=== PATIENT | male | born 1965 | race Caucasian/White ===

== ENCOUNTER 2017-10-31 10:00 | Observation (INO) ==
[2017-10-31] MEDS ORDERED: CeFAZolin Syr 2,000MG/20 ML 2,000 MG/20 ML SYRINGE IVPB ONE (10:21)
[2017-10-31] MEDS ORDERED: Albuterol 2.5 MG/3 ML NEBULIZER IH ONE ×2 (10:28→13:08)
[2017-10-31] MEDS ORDERED: Albuterol 2.5 MG/3 ML NEBULIZER ONE (10:29)
[2017-10-31] MEDS: Ringers Solution, Lactated 1,000 ML IVC SCH ×2 (10:40→15:00)
[2017-10-31] MEDS ORDERED: Gabapentin 300 MG CAPSULE PO ONE (10:53)
[2017-10-31] MEDS ORDERED: Acetaminophen IV 1,000 MG/100 ML INFUS..BTL IVPB ONE (10:53)
--- NOTE | 2017-10-31 10:56 | Anesthesia Evaluation PreOp ---
Date of Encounter: 10/31/17 Time of Encounter: 10:50 - Past History Planned Operation: multi level laminectomy Cardiac History: Denies any Significant Hx Pulmonary History: Smoker ANALYST BUSINESS ANALYSIS History: Denies Any Significant HX Other Medical History: Denies Any Significant HX Anesthesia History: No Prior Anesthetic Complications, Past Anesthesia (Has never had a GA before.) Alcohol Use: heavy Drug use: none Medications and Allergies HYDROcodone/Acet 10/325 mg [[place] 10-325 mg] 0.5 - 1 mg PO Q4-6H PRN 10/31/17 [ History] 3 Allergy/AdvReac Type Severity Reaction Status Date / Time No Known Allergies Allergy Verified 10/31/17 10:39 - Meds/Allergy Pre-op Review Medications Reviewed: Yes Allergies Reviewed: Yes Beta Blockers on Current Med List: No Anesthesia Exam Selected Entries 10/31/17 10:37 Temperature 98.4 F Pulse Rate 86 Respiratory Rate 18 Blood Pressure 143/86 O2 Sat by Pulse Oximetry 97 Weight: 86 kg NPO (# of Hours): over 8 hours - HEENT Pupil (Motor): Pupils equal Mallampati: II Teeth: Normal Oral Opening: Greater than 3 - Cardiac Rhythm: Regular Murmur: None - Pulmonary Breath Sounds: bilateral Clear Respiratory Effort: Symmetrical Anesthesia Assess/Plan ASA Score: 2 Modified Blaire Scale for Level of Consciousness: Cooperative, oriented, and tranquil Anesthetic Plan: General Monitoring Plan: Standard Monitors Recovery Plan: PACU
--- NOTE | 2017-10-31 11:40 | History & Physical Report ---
Date of Encounter: 10/31/17 Time of Encounter: 11:40 24 Hour HP Update - Instructions Instructions: If the History and Physical is less than 30 days old and was completed prior to A.M. admission and or procedure and has NOT been updated on calendar day of procedure please complete this update prior to performing procedure. - Update Patient reports changes in Medical Condition: No Changes in examination, assessment, or condition: No Changes in Medication: No Preop tests/diagnostics Reviewed: Yes Pre-Op MRSA Screen: Negative Surgery Remains Indicated: Yes Consent for Planned Operative Procedure(s) Verified: Yes - Pre-Operative Checklist Preoperative Checklist Indicated: No Prophylactic Antibiotic Ordered: Yes Home Medications Include Beta Camryn: No Beta Camryn Taken Today (Day of Surgery): No Beta Camryn Taken Yesterday (Day Prior to Surgery): No Is VTE Prophylaxis Indicated?: Yes
[2017-10-31] MEDS ORDERED: *HR* Remifentanil 1 MG VIAL IVP ONE (11:58)
[2017-10-31] MEDS ORDERED: *HR* Propofol 200 MG/20 ML VIAL IVP ONE ×2 (11:58→14:00)
[2017-10-31] MEDS ORDERED: *HR* FentaNYL (PF) 100 MCG/2 ML VIAL ONE (11:58)
[2017-10-31] MEDS ORDERED: *HR* Succinylcholine 200 MG/10 ML VIAL IVP ONE (11:58)
[2017-10-31] MEDS ORDERED: Lidocaine -MPF 4% 5 ML AMPUL ONE (11:58)
[2017-10-31] MEDS ORDERED: Dexamethasone 4 MG/ML VIAL ONE (11:58)
[2017-10-31] MEDS ORDERED: Lidocaine -MPF 2% 2 ML VIAL ONE (11:58)
[2017-10-31] MEDS ORDERED: Ondansetron 4 MG/2 ML VIAL ONE (11:58)
[2017-10-31] MEDS ORDERED: Bacitracin 50,000 UNIT, Polymyxin B Sulfate 500,000 UNIT, Sodium Chloride IRRigation 1,... IR ONE (12:10)
[2017-10-31] MEDS ORDERED: *HR* Labetalol 20 MG/4 ML SYRINGE IVP PRN (13:08)
[2017-10-31] MEDS ORDERED: *HR* Promethazine 25 MG/ML VIAL IVP PRN (13:08)
[2017-10-31] MEDS ORDERED: *HR* PHENYLEPHRINE 1,000 MCG/10 ML SYRINGE IVP ONE (14:04)
[2017-10-31] MEDS: *HR* HYDROmorphone (PF) 1 MG/ML SYRINGE IVP PRN ×4 (14:45→15:05)
--- NOTE | 2017-10-31 14:47 | Orthopedic Operative Note ---
Date of procedure: 10/31/17 Pre-op diagnosis: Lumbar stenosis, lumbar radiculopathy, bilateral lower extremity weakness Post-op diagnosis: same Operation/Findings: Laminectomy L2-L5: The patient was brought to the operative theater where he underwent general endotracheal anesthesia. He was given antibiotics prior to the start of the procedure. Compression boots and stockings were used for deep vein thrombosis prophylaxis. The patient was placed prone on a Garret table. The back was prepped and draped in the usual sterile fashion. An incision was marked and centered over the L4-S1 interspaces in the midline. We used Bovie cautery to make an incision and then this incision was deepened through the lumbar fascia. Bovie cautery and Vasquez elevators were used to reflect the paraspinal musculature to the lateral extent of the L2-3, L3-4, and L4-5 facet joints bilaterally. Janice clamps were placed over the spinous processes of L4 and L5 and an intraoperative lateral fluorograph was obtained. A discusssion was held between the radiologist and surgeon who both confirmed we were at the correct L4-L5 operative level. We then removed the supraspinous and interspinous ligaments between L4 and L5 and subsequently removed the ligamentum flavum flavum from its origin on the distal undersurface of the L4 lamina. The ligamentum flavum was noted to be quite hypertrophied as well as the facets were hypertrophied. This required performing a laminectomy of L4 with partial medial facetectomies including undercutting of the L4-L5 facets to decompress the lateral recesses. We moved proximally to the L3-L4 level and again removed hypertrophied ligamentum flavum, undercut the L3-4 facets, and did partial medial facetectomies. We also performed an L3 laminectomy. We moved proximally to the L2-3 level and again decompressed this level by removing ligamentum flavum, undercutting the L2-3 facets, doing partial medial facetectomies at L2-3, and performing a partial L2 laminectomy. After the decompression was complete we checked the foramen and the traversing nerve roots at L2-3, L3-4, and L4-5 and they were found to be free and patent. We copiously irrigated the wound and then closed the wound in layers with 1 Vicryl for the fascia, 2-0 Vicryl for the subcutaneous tissue, and Dermabond was used for skin closure. Sterile dressings were placed over the wound, the patient was turned supine in a hospital bed, and was extubated in the operative theater. All sponge needles and instrument counts were correct at the end of the procedure. The patient tolerated the procedure well without complications. Anesthesia: GETA Surgeon: Frank Miller Jr Was there an assistant unit forester present: No Estimated blood loss (cc): 125 Specimen: None Condition: stable Disposition: PACU
[2017-10-31] MEDS: *HR* Meperidine 25 MG/ML SYRINGE IVP PRN ×2 (15:00→15:15)
--- NOTE | 2017-10-31 15:40 | Anesthesia Evaluation Post Op ---
Date of Encounter: 10/31/17 Time of Encounter: 15:39 - Vital Signs Vital Signs: Vital Signs/O2 Sat, Most Current Temp Pulse Resp BP Pulse Ox 97.9 F 90 16 155/98 94 10/31/17 15:07 10/31/17 15:27 10/31/17 15:27 10/31/17 15:27 10/31/17 15:27 - Lungs Lungs: Clear Ascult./Percussion - Airway Airway: Non-obstructed - Cardiovascular Regular Rate - Mental Status Mental Status: Alert & Oriented, Answers Appropriately - Pain Pain Scale: 0 Pain Scale used: Numeric (1 - 10) - Nausea Vomiting Nausea Vomiting: Not Present - Hydration Hydration: NPO, Has not voided - Discharge PostOp Status: Transfer Patient to floor
[2017-10-31] MEDS ORDERED: Naloxone 0.4 MG/ML INJ IVP PRN (16:08)
[2017-10-31] MEDS ORDERED: Ondansetron 4 MG/2 ML VIAL IVP PRN (16:08)
[2017-10-31] MEDS ORDERED: Acetaminophen 325 MG TABLET PO PRN (16:08)
[2017-10-31] MEDS: *HR* OxyCODONE Immed Rel 5 MG TABLET PO PRN (16:54)
[2017-10-31] MEDS: *HR* HYDROcodone/Acet 5/325 mg TABLET PO PRN (19:38)
[2017-10-31] MEDS ORDERED: CloNIDine Patch 0.1 MG PATCH (WEEKLY) TD SCH (20:45)
[2017-10-31] MEDS: Erythromycin OPTH Oint LEFT EYE SCH (21:09)
[2017-11-01] MEDS: *HR* OxyCODONE Immed Rel 5 MG TABLET PO PRN ×5 (04:45→23:52)
[2017-11-01] MEDS: Erythromycin OPTH Oint LEFT EYE SCH ×9 (05:49→22:18)
[2017-11-01] MEDS: *HR* HYDROcodone/Acet 5/325 mg TABLET PO PRN ×2 (09:06→18:07)
[2017-11-02] MEDS: Erythromycin OPTH Oint LEFT EYE SCH ×9 (05:38→22:15)
[2017-11-02] MEDS: *HR* OxyCODONE Immed Rel 5 MG TABLET PO PRN ×4 (05:55→23:36)
[2017-11-02] MEDS: *HR* HYDROcodone/Acet 5/325 mg TABLET PO PRN ×2 (08:08→21:30)
--- NOTE | 2017-11-02 09:54 | Orthopedics Progress Note ---
Date of Encounter: 11/01/17 Time of Encounter: 08:30 - Assessment and Plan (1) Lumbar stenosis Current Visit: Yes Status: Chronic Qualifiers: Neurogenic claudication status: unspecified Qualified Code(s): M48.061 - Spinal stenosis, lumbar region without neurogenic claudication (2) Lumbar radiculopathy Current Visit: Yes Status: Chronic (3) Bilateral leg weakness Current Visit: Yes Status: Chronic (4) Status post laminectomy Current Visit: Yes Status: Acute Subjective Principal diagnosis: Lumbar stenosis, lumbar radiculopathy, bilateral lower extremity weakness Interval history: POD#1 Date of procedure: 10/31/17 Pre-op diagnosis: Post-op diagnosis: same Operation/Findings: Laminectomy L2-L5 The patient is complains of continued b/l leg weakness, and low back pain. He states he is concerned that his left ankle is broken because he states he fell on it prior to surgery and has had pain and swelling since falling. Denies seeking care from any other provider for this issue thus far. Afebrile vital signs are stable. Incision is clean dry and intact. Vascularly intact with regard to bilateral lower extremities - patient demonstrates significant weakness with dorsiflexion to bilateral ankles. Assessment: Stable postoperative. Plan: Reviewed postoperative restrictions and precautions. Patient verbalized understanding. Mobilize with therapy Continue analgesics as needed Discharge planning - awaiting therapy recommendations Will continue to monitor leg weakness Objective Vital signs: Vital Signs Temp Pulse Resp BP Pulse Ox 11/02/17 07:31 98.5 F 80 18 159/101 93 11/02/17 03:25 99.4 F 85 15 136/81 92 11/01/17 23:55 98.5 F 82 15 149/91 95 11/01/17 19:12 97.5 F L 94 16 156/76 91 11/01/17 16:25 98.3 F 87 18 162/91 92 11/01/17 12:05 98.4 F 72 14 154/98 98 Intake and Output 11/01/17 11/02/17 11/02/17 23:59 07:59 15:59 Intake Total 0 / 0 240 / 240 Output Total 1650 / 1650 700 / 700 750 / 750 Balance -1650 / -1650 -700 / -700 -510 / -510 Intake: Oral 0 / 0 240 / 240 Output: Urine 1650 / 1650 700 / 700 750 / 750 Other: Meal Dinner Breakfast Percent of Meal Consumed 20% 50% # Bowel Movements 0 - VTE Documentation of Mechanical Device: Intermittent pneumatic compression device Consult Discharge Plan - Plan Referrals: Gisel Voss CNP [Primary Care Provider] - David Cisneros [Family Provider] -
[2017-11-02] MEDS: tiZANidine 4 MG TABLET PO PRN (14:32)
--- NOTE | 2017-11-02 17:14 | Spine Progress Note ---
Date of Encounter: 11/02/17 Time of Encounter: 17:13 Subjective Principal diagnosis: Lumbar stenosis, lumbar radiculopathy, bilateral lower extremity weakness Interval history: The patient is without complaints. Afebrile vital signs are stable. Incision is clean dry and intact. He still has weakness in dorsiflexion which is improved compared to preop, he is approximately 3 out of 5 on the left foot dorsiflexion and 4 minus out of 5 on the right foot dorsiflexion. Fires all upper and lower extremity motor groups. Assessment :stable. Plan mobilize , continue analgesics, discharge planning. We will consider AFO for right foot. Objective Vital signs: Vital Signs Temp Pulse Resp BP Pulse Ox 11/02/17 15:46 98.1 F 77 17 138/95 94 11/02/17 14:35 82 143/91 11/02/17 12:39 86 160/114 11/02/17 12:38 86 159/103 11/02/17 11:08 97.8 F 84 18 146/100 93 11/02/17 07:31 98.5 F 80 18 159/101 93 11/02/17 03:25 99.4 F 85 15 136/81 92 11/01/17 23:55 98.5 F 82 15 149/91 95 11/01/17 19:12 97.5 F L 94 16 156/76 91 Intake and Output 11/02/17 11/02/17 11/02/17 07:59 15:59 23:59 Intake Total 240 / 240 Output Total 700 / 700 750 / 750 Balance -700 / -700 -510 / -510 Intake: Oral 240 / 240 Output: Urine 700 / 700 750 / 750 Other: Meal Lunch Percent of Meal Consumed 50% Consult Discharge Plan - Plan Referrals: Gisel Voss CNP [Primary Care Provider] - David Cisneros [Family Provider] -
[2017-11-03] MEDS: *HR* HYDROcodone/Acet 5/325 mg TABLET PO PRN ×2 (04:02→21:37)
[2017-11-03] MEDS: Erythromycin OPTH Oint LEFT EYE SCH ×6 (05:27→16:26)
[2017-11-03] MEDS: *HR* OxyCODONE Immed Rel 5 MG TABLET PO PRN ×3 (06:58→18:55)
--- NOTE | 2017-11-03 11:33 | Orthopedics Progress Note ---
Date of Encounter: 11/03/17 Time of Encounter: 08:40 - Assessment and Plan (1) Lumbar stenosis Status: Chronic Qualifiers: Neurogenic claudication status: unspecified Qualified Code(s): M48.061 - Spinal stenosis, lumbar region without neurogenic claudication (2) Lumbar radiculopathy Status: Chronic (3) Bilateral leg weakness Status: Chronic (4) Status post laminectomy Status: Acute Subjective Principal diagnosis: Lumbar stenosis, lumbar radiculopathy, bilateral lower extremity weakness Interval history: POD#3 Date of procedure: 10/31/17 Pre-op diagnosis: Post-op diagnosis: same Operation/Findings: Laminectomy L2-L5 The patient is complains of continued b/l leg weakness, and low back pain. Afebrile vital signs are stable. Incision is clean dry and intact. Vascularly intact with regard to bilateral lower extremities - patient demonstrates significant improvement in weakness with dorsiflexion to bilateral ankles - 4/5 on left ankle dorsiflexion and 3/5 on right. Assessment: Stable postoperative. Plan: Reviewed postoperative restrictions and precautions. Patient verbalized understanding. Mobilize with therapy Continue analgesics as needed Discharge planning - awaiting auth for placement to snf leg weakness improving AFO to right ankle to improve ambulation Objective Vital signs: Vital Signs Temp Pulse Resp BP Pulse Ox 11/03/17 11:07 98.3 F 71 18 135/91 97 11/03/17 06:33 98.7 F 70 18 149/98 93 11/03/17 03:58 98.1 F 74 15 149/92 95 11/02/17 23:11 97.6 F 81 15 159/95 94 11/02/17 19:00 98.4 F 78 15 157/97 95 11/02/17 15:46 98.1 F 77 17 138/95 94 11/02/17 14:35 82 143/91 11/02/17 12:39 86 160/114 11/02/17 12:38 86 159/103 Intake and Output 11/02/17 11/03/17 11/03/17 23:59 07:59 15:59 Intake Total 240 / 240 Output Total 900 / 900 Balance -900 / -900 240 / 240 Intake: Oral 240 / 240 Output: Urine 900 / 900 Other: Meal Dinner Breakfast Percent of Meal Consumed 50% 100% - VTE Documentation of Mechanical Device: Intermittent pneumatic compression device Consult Discharge Plan - Plan Referrals: Gisel Voss CNP [Primary Care Provider] - David Cisneros [Family Provider] -
[2017-11-03] MEDS: tiZANidine 4 MG TABLET PO PRN (15:31)
[2017-11-04] MEDS: Erythromycin OPTH Oint LEFT EYE SCH ×5 (04:31→16:23)
--- NOTE | 2017-11-04 08:13 | Orthopedics Progress Note ---
Date of Encounter: 11/04/17 Time of Encounter: 08:40 - Assessment and Plan (1) Lumbar stenosis Current Visit: No Status: Chronic Qualifiers: Neurogenic claudication status: unspecified Qualified Code(s): M48.061 - Spinal stenosis, lumbar region without neurogenic claudication (2) Lumbar radiculopathy Current Visit: No Status: Chronic (3) Bilateral leg weakness Current Visit: No Status: Chronic (4) Status post laminectomy Current Visit: No Status: Acute Subjective Principal diagnosis: Lumbar stenosis, lumbar radiculopathy, bilateral lower extremity weakness Interval history: POD#4 Date of procedure: 10/31/17 Pre-op diagnosis: Post-op diagnosis: same Operation/Findings: Laminectomy L2-L5 The patient is complains of continued b/l leg weakness, and low back pain though today admits to significant improvement. Afebrile vital signs are stable. Incision is clean dry and intact - scant drainage noted from proximal and distal aspects, mostly old appearing. Vascularly intact with regard to bilateral lower extremities - patient demonstrates significant improvement in weakness with dorsiflexion to bilateral ankles - 4/5 on left ankle dorsiflexion and 3/5 on right. Patient wearing AFO at this moment and working with OT. Assessment: Stable postoperative. Plan: Reviewed postoperative restrictions and precautions. Patient verbalized understanding. Mobilize with therapy Continue analgesics as needed leg weakness improving AFO to right ankle to improve ambulation Discharge planning - awaiting auth for placement to [facility]; patient appears appropriate for discharge as soon as auth obtained. Objective Vital signs: Vital Signs Temp Pulse Resp BP Pulse Ox 11/04/17 07:01 98.3 F 73 16 165/106 95 11/04/17 00:21 97.9 F 70 14 119/79 92 11/03/17 18:32 98.5 F 79 15 162/100 96 11/03/17 14:47 98.4 F 78 18 144/92 96 11/03/17 11:07 98.3 F 71 18 135/91 97 - VTE Documentation of Mechanical Device: Intermittent pneumatic compression device Consult Discharge Plan - Plan Referrals: Gisel Voss CNP [Primary Care Provider] - David Cisneros [Family Provider] -
[2017-11-04] MEDS: *HR* OxyCODONE Immed Rel 5 MG TABLET PO PRN ×2 (09:30→13:32)
[2017-11-04 11:27] VITALS: BP 145/96
--- NOTE | 2017-11-04 15:54 | Discharge Summary ---
Date of Encounter: 11/04/17 Time of Encounter: 15:00 - Discharge Diagnosis (1) Lumbar stenosis Priority: Primary Status: Chronic Qualifiers: Neurogenic claudication status: unspecified Qualified Code(s): M48.061 - Spinal stenosis, lumbar region without neurogenic claudication (2) Lumbar radiculopathy Priority: Primary Status: Chronic (3) Bilateral leg weakness Priority: Primary Status: Chronic (4) Status post laminectomy Priority: Primary Status: Acute - Hospital Course Hospital course: Mr. Neri is a 52 year old male Date of procedure: 10/31/17 Pre-op diagnosis: Lumbar stenosis, lumbar radiculopathy, bilateral lower extremity weakness Post-op diagnosis: same Operation/Findings: Laminectomy L2-L5 The patient had an uneventful postoperative course. Progressed from intravenous analgesic needs to oral analgesic needs only. Remained neurovascularly intact and mobilized satisfactorily. All intraoperative and/or postoperative radiographic studies were satisfactory. Patient was seen and evaluated by surgeon throughout his hospital course. Patient is discharged with plan for rehabilitation and follow-up in 2 weeks post discharge on analgesic medication and patient's home medications. - Time Spent with Patient Total time spent providing and/or coordinating discharge services: - Discharge Medications Prescriptions: OxyCODONE Immed Rel [Roxicodone 5 MG] 5 mg PO Q6HR PRN 7 Days #28 tablet PRN Reason: Severe Pain Home Medications: HYDROcodone/Acet 10/325 mg [[place] 10-325 mg] 0.5 - 1 mg PO Q4-6H PRN 10/31/17 [ History] OxyCODONE Immed Rel [Roxicodone 5 MG] 5 mg PO Q6HR PRN 7 Days #28 tablet [Rx] Allergies/Adverse Reactions: 3 Allergy/AdvReac Type Severity Reaction Status Date / Time No Known Allergies Allergy Verified 10/31/17 10:39 Date of admission: 11/03/17 16:58 Primary care physician: Gisel Voss CNP Consults: 10/31/17 16:08 Consult to Nurse Navigator [CONS] Routine Comment: spine navigator Consult to Occupational Therapy [CONS] Routine Comment: Evaluate, develop and implement POC Reason for Consult: Postoperative rehabilitation Does patient have active BEDREST order?: No Is patient medically & hemodynamically stable?: Yes Patient assessed for mobility or mobilized this visit?: No Consult to Physical Therapy [CONS] Routine Comment: Evaluate, develop and implement POC Reason for Consult: Postoperative rehabilitation Does patient have active BEDREST order?: No Is patient medically & hemodynamically stable?: Yes Patient assessed for mobility or mobilized this visit?: No 10/31/17 16:34 Consult to Phlebotomist [CONS] Routine Reason for SW Consult: pt concerned with home activities. possible hh 10/31/17 20:31 Consult to Physician [CONS] Routine Consulting Provider: Benson Saha Reason for Consult: possible corneal abrasion Call Completed: Yes - VTE Documentation of Mechanical Device: Intermittent pneumatic compression device - Impressions ITS Impressions Fluoroscopy 10/31/17 00:00 IMPRESSION: Intraprocedural fluoroscopic spot images as above. See separate procedure report for more information. D/ / 10/31/2017 15:11:36 Mj Singer MD / carl Interpreting Provider: Mj Singer MD Lumbar Spine X-Ray 10/31/17 00:00 IMPRESSION: Intraprocedural fluoroscopic spot images as above. See separate procedure report for more information. D/ / 10/31/2017 15:11:36 Mj Singer MD / carl Interpreting Provider: Mj Singer MD Ankle X-Ray 11/01/17 11:07 IMPRESSION: 1. Unremarkable radiographs of the left ankle. D/ / Carroll Renee MD / Carroll Renee MD Interpreting Provider: Carroll Renee MD - Patient Status Disposition: Transfer SNF Condition: Good Functional capacity at discharge: uses cane/walker Overall status at discharge: patient is progressing back to baseline - Discharge Instructions Follow Up With: Stacy Fierro PAC [Physician Restrike Hammer Operator] - 11/15/17 2:30 pm Gisel Voss CNP [Primary Care Provider] - David Cisneros [Family Provider] - Additional Instructions: Discharge Instructions: Lumbar Please call [facility] ([phone]), your Primary Care Physician, or report to the ER if you have any of the following symptoms: Fever greater that 101.5, increased pain/redness/drainage/odor for your incision site or any other concerning symptoms. ACTIVITY * May Shower * No Tub Baths * No lifting greater than 10 pounds * No Smoking * No Swimming * No off Ground Activities (Running, Climbing, Ladders, Horseback Riding) * No Driving * Wear Back Brace when up walking if lumbar fusion done MEDICATIONS: Upon discharge resume your home medications. Take all the medications as prescribed. Take a stool softener if taking narcotic pain medications. Stool softeners are only effective if you drink enough fluids. Drink 6-8 glass of water or fluids a day, unless this is not allowed for another health problem. Despite using stool softeners, if you haven't had a bowel movement in 3 days, please switch to a gentle laxative. Gentle laxatives are sold over the counter. You should have a bowel movement within 24 hours, if not call the office. You will be discharged from the hospital with a prescription for pain medication. You are encouraged to decrease the use of narcotic pain medication as tolerated. Should you require a refill, please call the office. It is best to call 48-72 hours in advance of needing a prescription refill so you don't run out of medication. WOUND CARE: Remove Dressing Tomorrow. Leave incision open to air. Pat dry when you get out of the shower. FOLLOW-UP: Please follow up with your surgeon in the orthopedic clinic in 2 weeks from the day of surgery. References: [employer] (www.apta.org) - Diet and Activity Activity: as per physical therapy Diet: advance to your usual diet
[2017-11-04] MEDS: tiZANidine 4 MG TABLET PO PRN (16:22)
== END 2017-11-04 17:40 ==
LOC: SAMDAY 10:00 → 3NENU 10:00
PROVIDERS: ADMIT Orthopaedic Surgery Orthopaedic Surgery of the Spine; ATTEND Orthopaedic Surgery Orthopaedic Surgery of the Spine

== ENCOUNTER 2017-11-07 12:52 | Observation (INO) ==
--- NOTE | 2017-11-07 13:59 | Emergency Department Note ---
Disposition Clinical Impression: Weakness, Frequent falls, S/P laminectomy, Pain management Disposition: Admitted As Inpatient Condition: Undetermined Referrals: Gisel Voss CNP [Primary Care Provider] - David Cisneros [Family Provider] - Forms: ED Satisfaction Letter Time of Disposition: 15:10 General Adult HPI - General Chief complaint: ED Recheck/Abnormal Lab/Rx Stated complaint: "incision drainage post op" Time Seen by Provider: 11/07/17 13:46 Source: patient, family Mode of arrival: wheelchair Limitations: no limitations Nursing Notes Reviewed: Yes Vital Signs Reviewed: Yes - History of Present Illness HPI Narrative: 52-year-old male with roughly 1 week status post laminectomy and lumbar spine arrives to the emergency department multiple complaints. The patient admits to going through 3 or 4 shirts and bleeding through bandage. The patient denies any fevers, chills, saddle anesthesias, bowel,, urinary retention. The patient has been experiencing weakness of bilateral lower extremity prior to surgery and his family is concerned because he is unable to get around at home. The patient arrives to the emergency department with complaint of this bleeding as well as concern for admission to the hospital for admission to a rehabilitation facility. The patient denies any other complaints at this time. He states that his pain and his neurologic symptoms are unchanged from prior to laminectomy. Pain Scale: 7 - Related Data Home Medications Medication Instructions Recorded Confirmed HYDROcodone/Acet 10/325 mg [[place] 0.5 - 1 mg PO Q4-6H PRN 10/31/17 11/07/17 10-325 mg] Meloxicam 15 mg PO DAILY 11/07/17 11/07/17 Previous Rx's Medication Instructions Recorded OxyCODONE Immed Rel [Roxicodone 5 5 mg PO Q6HR PRN 7 Days #28 tablet 11/04/17 MG] Allergies Allergy/AdvReac Type Severity Reaction Status Date / Time No Known Allergies Allergy Verified 11/07/17 12:57 All systems ED: reviewed and negative except as stated. Constitutional: Reports: weakness. Denies: fever, chills ENT ED: Denies: congestion Cardiovascular: Denies: chest pain Respiratory: Denies: dyspnea Gastrointestinal: Denies: abdominal pain, nausea, vomiting, diarrhea Genitourinary: Denies: urgency, dysuria Musculoskeletal: Reports: back pain, myalgia. Denies: arthralgia Integumentary: Reports: other (Surgical site). Denies: rash, abrasion Neurological: Reports: weakness, numbness, paresthesias, abnormal gait. Denies : headache, confusion, vertigo Past Medical History - Past Medical History Attestation: Yes The following information was validated with the patient. Source: patient, old records reviewed Medical history: Reports: no medical history Surgical history: Reports: orthopedic, other (Laminectomy) Psychiatric history: Reports: no psych history - Social History Smoking Status: Current every day smoker Smokeless Tobacco Status: No Alcohol use: Reports: occasionally Drug use: Reports: none Physical Exam - General Limitations: no limitations General appearance: alert, in no apparent distress - Head Head exam: atraumatic, normocephalic, normal inspection - Eye Eye exam: Present: normal appearance, PERRL, EOMI - ENT ENT exam: normal exam, normal oropharynx, mucous membranes moist - Neck Neck exam: Present: normal inspection, full ROM, trachea midline - Chest Chest inspection: Present: normal inspection, symmetric chest wall rise - Respiratory Respiratory exam: Present: normal lung sounds bilaterally - Cardiovascular Cardiovascular exam: Present: regular rate, normal rhythm, normal heart sounds - Abdominal Exam Abdominal exam: Present: soft, Non-Tender. Absent: tenderness, distention, guarding, rebound, rigidity - Extremities Exam Extremities exam: Present: normal inspection, full ROM. Absent: tenderness, pedal edema - Back Exam Back exam: Present: full ROM, tenderness, other (Patient has surgical wound and lumbar spine. There is a large amount of dried blood surrounding surgical incision site. It is intact. There is some irritation of the skin on the superior aspect. Sutures are in place. No active bleeding noted at this time.) - Neurological Exam Neurological exam: Present: alert, oriented X3, CN II-XII intact - Expanded Neurological Exam Patient oriented to: Present: person, place, time Cranial nerves: EOM function (II, III, IV, ): Normal, facial sensation (V): Normal, facial palsy (VII): Normal Motor strength - LUE: 5/5 Motor strength - RUE: 5/5 Motor strength - LLE: 3/5 Motor strength - RLE: 3/5 Sensory exam upper extremity: light touch: Normal Sensory exam lower extremity: light touch: Abnormal Left, Abnormal Right DTR: patellar (L): 2+, patellar (R): 2+ Coma Scale Eye Opening: Spontaneous Coma Scale Motor Response: Obeys Commands Coma Scale Verbal Response: Oriented Coma Scale Total: 15 - Skin Skin exam: Present: warm, dry, normal color Course - Consultations Consultation #1: Spoke to Dr. Miller in spinal surgery who recommended Surgicel on the patient' s wound. No other recommendations of imaging or concerning findings at this time. Time: 14:20 Consultation #2: Patient case discussed with healthcare social worker stated that due to his insurance he would need a prior authorization and likely observation admission prior to admission for rehabilitation facility. Time: 15:00 Vital Signs Temperature 98.1 F 11/07/17 12:55 Pulse Rate 80 11/07/17 12:55 Respiratory Rate 18 11/07/17 12:55 O2 Sat by Pulse Oximetry 95 11/07/17 12:55 Temperature 98.1 F 11/07/17 12:56 Pulse Rate 80 11/07/17 12:56 Respiratory Rate 18 11/07/17 12:56 Blood Pressure 129/73 11/07/17 12:56 O2 Sat by Pulse Oximetry 95 11/07/17 12:56 Oxygen Delivery Oxygen Delivery Room Air Medical Decision Making - MDM Narrative Medical decision making narrative: Patient's workup in the emergency Department finds bleeding from surgical site on physical examination. Surgicel was placed and bandage was placed per recommendations from Dr. Miller in spinal surgery. In addition he will be consulted for further care and any further recommendations. The patient attempted to go to rehabilitation facility upon discharge from the hospital after surgery but was unable to go to due to conditions of facility. The patient arrives to the emergency department with concern for frequent falls and inability to a belated at home which is apparently baseline prior to even surgery. No findings concerning for cauda equina syndrome or worsening pain. Given the patient's concerning inability to ambulate prior to surgery as well as continued even after surgery, the patient will need to be admitted to the hospital for observation and preauthorization for admission to a rehabilitation facility. This was confirmed by social work. Social work has been consulted as has PT and OT. Accepted by Dr. Deras. - Medical Records Medical records reviewed: Yes I reviewed the patient's medical records. - Lab Data Lab results reviewed: Yes I reviewed the patient's lab results. Result diagrams: 11/07/17 14:06 11/07/17 14:06 Lab Results 11/07/17 11/07/17 Range/Units 14:06 14:06 WBC 7.0 (4.3-11.1) K/mcL RBC 4.16 L (4.19-5.50) M/mcL Hgb 13.1 (12.9-16.9) g/dL Hct 38.3 (37.5-50.1) % MCV 92.1 (83.0-100.0) fL MCH 31.5 (28.0-33.3) pg MCHC 34.2 (31.6-35.5) g/dL RDW 12.8 (11.5-14.5) % Plt Count 307 (140-400) K/mcL MPV 8.9 L (9.4-12.4) fL Immature Gran % 0.3 (0-4) % Seg Neutrophils % 56.1 % Lymphocytes % 28.6 % Monocytes % 13.0 % Eosinophils % 0.9 % Basophils % 1.1 % Neutrophils # 3.9 (1.6-8.9) K/mcL Lymphocytes # 2.0 (0.6-4.6) K/mcL Monocytes # 0.9 (0.0-1.3) K/mcL Eosinophils # 0.1 (0.0-0.6) K/mcL Basophils # 0.1 (0.0-0.2) K/mcL Sodium 135 L (136-145) mEq/L Potassium 4.3 (3.5-5.1) mEq/L Chloride 105 (98-107) mEq/L Carbon Dioxide 26 (23-29) mEq/L BUN 12 (6-20) mg/dL Creatinine 0.70 (0.70-1.30) mg/dL Est GFR ( Amer) > 60 (> 60) Est GFR (Non-Af Amer) > 60 (> 60) BUN/Creatinine Ratio 17 (6-26) Glucose 104 (70-105) mg/dL Calculated Osmolality 280 (280-300) Calcium 9.2 (8.6-10.3) mg/dL
[2017-11-07 14:19] LABS: Basophils # 0.1 K/mcL (0.0-0.2); Basophils % 1.1 %; Eosinophils # 0.1 K/mcL (0.0-0.6); Eosinophils % 0.9 %; Hematocrit 38.3 % (37.5-50.1); Hemoglobin 13.1 g/dL (12.9-16.9); Immature Granulocytes % 0.3 % (0-4); Lymphocytes % 28.6 %; Mean Corpuscular HGB Conc 34.2 g/dL (31.6-35.5); Mean Corpuscular Hemoglobin 31.5 pg (28.0-33.3); Mean Corpuscular Volume 92.1 fL (83.0-100.0); Mean Platelet Volume 8.9 fL (9.4-12.4); Monocytes # 0.9 K/mcL (0.0-1.3); Neutrophils # 3.9 K/mcL (1.6-8.9); Platelet Count 307 K/mcL (140-400); Red Blood Count 4.16 M/mcL (4.19-5.50); Red Cell Distribution Width 12.8 % (11.5-14.5); Segmented Neutrophils % 56.1 %
--- NOTE | 2017-11-07 14:38 | Emergency Department Note ---
Disposition Clinical Impression: Weakness Disposition: Admitted As Inpatient Referrals: Gisel Voss CNP [Primary Care Provider] - David Cisneros [Family Provider] - Forms: ED Satisfaction Letter General Adult HPI - General Chief complaint: ED Recheck/Abnormal Lab/Rx Stated complaint: "incision drainage post op" Time Seen by Provider: 11/07/17 13:46 Source: patient, family Mode of arrival: wheelchair Limitations: no limitations - History of Present Illness Pain Scale: 7 - Related Data Home Medications Medication Instructions Recorded Confirmed HYDROcodone/Acet 10/325 mg [[place] 0.5 - 1 mg PO Q4-6H PRN 10/31/17 10/31/17 10-325 mg] Previous Rx's Medication Instructions Recorded OxyCODONE Immed Rel [Roxicodone 5 5 mg PO Q6HR PRN 7 Days #28 tablet 11/04/17 MG] Allergies Allergy/AdvReac Type Severity Reaction Status Date / Time No Known Allergies Allergy Verified 11/07/17 12:57 Constitutional: Reports: weakness. Denies: fever, chills ENT ED: Denies: congestion Cardiovascular: Denies: chest pain Respiratory: Denies: dyspnea Gastrointestinal: Denies: abdominal pain, nausea, vomiting, diarrhea Genitourinary: Denies: urgency, dysuria Musculoskeletal: Reports: back pain, myalgia. Denies: arthralgia Integumentary: Reports: other (Surgical site). Denies: rash, abrasion Neurological: Reports: weakness, numbness, paresthesias, abnormal gait. Denies : headache, confusion, vertigo Past Medical History - Past Medical History Medical history: Reports: no medical history Surgical history: Reports: orthopedic, other (Laminectomy) Psychiatric history: Reports: no psych history - Social History Smoking Status: Current every day smoker Smokeless Tobacco Status: No Alcohol use: Reports: occasionally Drug use: Reports: none Physical Exam - General Limitations: no limitations General appearance: alert, in no apparent distress Course Vital Signs Temperature 98.1 F 11/07/17 12:55 Pulse Rate 80 11/07/17 12:55 Respiratory Rate 11/07/17 12:55 O2 Sat by Pulse Oximetry 95 11/07/17 12:55 Temperature 98.1 F 11/07/17 12:56 Pulse Rate 80 11/07/17 12:56 Respiratory Rate 11/07/17 12:56 Blood Pressure 129/73 11/07/17 12:56 O2 Sat by Pulse Oximetry 95 11/07/17 12:56 Oxygen Delivery Oxygen Delivery Room Air Medical Decision Making - Lab Data Result diagrams: 11/07/17 14:06 Lab Results 11/07/17 Range/Units 14:06 WBC 7.0 (4.3-11.1) K/mcL RBC 4.16 L (4.19-5.50) M/mcL Hgb 13.1 (12.9-16.9) g/dL Hct 38.3 (37.5-50.1) % MCV 92.1 (83.0-100.0) fL MCH 31.5 (28.0-33.3) pg MCHC 34.2 (31.6-35.5) g/dL RDW 12.8 (11.5-14.5) % Plt Count 307 (140-400) K/mcL MPV 8.9 L (9.4-12.4) fL Immature Gran % 0.3 (0-4) % Seg Neutrophils % 56.1 % Lymphocytes % 28.6 % Monocytes % 13.0 % Eosinophils % 0.9 % Basophils % 1.1 % Neutrophils # 3.9 (1.6-8.9) K/mcL Lymphocytes # 2.0 (0.6-4.6) K/mcL Monocytes # 0.9 (0.0-1.3) K/mcL Eosinophils # 0.1 (0.0-0.6) K/mcL Basophils # 0.1 (0.0-0.2) K/mcL Attestation Statement - Attestation Attestation: I examined this patient and my medical decision-making was reviewed with the Resident Physician. I agree with the documented findings, disposition and treatment plan as described except to the extent set forth below. 52 year old male presntes to the ED with complaints of lower lumbar drainage of seroanginous fluid s/p lumbar lamiectom per Dr. Miller on Tuesday. Patinet states that before the surgery he was having parestehsia and icreased edema into his exertmiey and now after the surgery they have miimally improved. Patinet states that he does not have saddle paresthesia or urnnary incontinence/ retention, or dereased pulses in the lower extremities. They called Dr. Rooney office and they recommedned admission to the hospital for evaluation and possible jail placement for PT/OT. We have spoken Dr. Miller who is agreeable to consult.
[2017-11-07 14:39] LABS: BUN/Creatinine Ratio 17 (6-26); Blood Urea Nitrogen 12 mg/dL (6-20); Calcium 9.2 mg/dL (8.6-10.3); Carbon Dioxide 26 mEq/L (23-29); Chloride 105 mEq/L (98-107); Glucose 104 mg/dL (70-105); Osmolality,Calculated 280 (280-300); Potassium 4.3 mEq/L (3.5-5.1); Sodium 135 mEq/L (136-145); eGFR For African Americans > 60 (> 60); eGFR For Non-African Americans > 60 (> 60)
--- NOTE | 2017-11-07 16:12 | Internal Med History&Physical ---
Date of Encounter: 11/07/17 Time of Encounter: 16:12 Internal Medicine - H&P: HPI Chief complaint: Postoperative bleeding History of present illness: Mr. Neri is a 52 year old male who is s/p laminectomy and presenting to the emergency department with complaining of severe bleeding through the bandage as well as experiencing weakness of bilateral lower extremities which actually is unchanged from prior to laminectomy. Surgeon was consulted and he is requested that hospitalist will admit the patient and he will evaluate the patient later in consult. The patient has no significant past medical history to address, however has the ER staff , the surgeon requested pain management to be addressed by hospitalist team. Past Med Surg Social Fam HX - Past Medical History Medical history: no medical history Additional medical history: back pain Psychiatric history: no psych history - Past Surgical History Surgical History: orthopedic, other (Laminectomy) Additional surgical history: Back Pain - Social History Smoking Status: Current every day smoker Smokeless Tobacco Status: No Alcohol use: occasionally Drug use: none - Family History Father Living Status: Age at : 63 Cause of : heart attack Hx Family Cardiac Disorders: Yes Hx Family Respiratory Disorders: No Hx Family Cancer: No Hx Family GI Disorders: No Hx Family Genitourinary Disorders: No Hx Family Endocrine Disorder: No Hx Family Musculoskeletal Disorders: No Hx Family Neuromuscular Disorders: No Hx Family Neurologic Disorders: No Hx Family Autoimmune Disorders: No Hx Family Reproductive Disorders: No Hx Family Psychosocial Disorders: No Hx Family Medical Disorders: Yes Internal Medicine - H&P: Meds HYDROcodone/Acet 10/325 mg [[place] 10-325 mg] 0.5 - 1 mg PO Q4-6H PRN 10/31/17 [ History] OxyCODONE Immed Rel [Roxicodone 5 MG] 5 mg PO Q6HR PRN 7 Days #28 tablet [Rx] Meloxicam 15 mg PO DAILY 11/07/17 [History] 3 Allergy/AdvReac Type Severity Reaction Status Date / Time No Known Allergies Allergy Verified 11/07/17 12:57 All Systems PM: A 10-system review of systems was performed and is negative for pertinent findings except as documented above in the HPI. - Constitutional Constitutional: no chills, no fever(s), no night sweats - Cardiovascular Cardiovascular ROS IM: no chest pain, no diaphoresis, no dyspnea, no lightheadedness, no palpitations, no syncope - Respiratory Respiratory: no cough, no dyspnea, no wheezing, no excessive phlegm production - Gastrointestinal Gastrointestinal: no abdominal pain, no diarrhea, no hematemesis, no hematochezia, no melena, no nausea, no vomiting - Neurological Neurological ROS: weakness, no confusion, no convulsions, no focal weakness, no numbness, no tingling, no tremor(s) - Constitutional Vitals: Temp Pulse Resp BP Pulse Ox 98.1 F 80 18 129/73 95 11/07/17 12:56 11/07/17 12:56 11/07/17 12:56 11/07/17 12:56 11/07/17 12:56 General appearance: Present: A&O X 3 - Head Head exam: Present: atraumatic, normocephalic - Neck Neck exam general surgery: Present: supple, trachea midline. Absent: lymphadenopathy - Respiratory Respiratory exam: Present: CTAB. Absent: accessory muscle use, rales, rhonchi, wheezes - Cardiovascular Cardiovascular exam: Present: RRR, +S1, +S2. Absent: diastolic murmur, gallop, rubs, systolic murmur - GI/Abdominal GI/Abdominal exam: Present: normal bowel sounds, soft, no peritoneal signs. Absent: distended, tenderness - Extremities Exam Extremities exam: Present: warm, radial pulses palpable and symmetrical. Absent : calf tenderness, cyanotic, pedal edema - Neurological Exam Neurological exam: Present: CN II-XII intact, oriented X3, no focal deficits. Absent: pronater drift, facial droop, speech deficit Internal Med - H&P Results - Labs CBC & Chem 7: 11/08/17 07:13 11/07/17 14:06 - Assessment and plan (1) Status post laminectomy Current Visit: Yes Status: Acute Assessment and plan: Surgery was consulted for further evaluation and management of bleeding (2) Pain management Current Visit: Yes Status: Acute Assessment and plan: We will start pain management protocol , pain medication will be scheduled when necessary according to severity of the reported pain (3) DVT prophylaxis Current Visit: Yes Status: Acute Assessment and plan: SCDs - Time Spent With Patient Total time spent is greater than 50% in coordination of care (as documented) at patient's floor/unit and/or counseling patient:
[2017-11-07] MEDS ORDERED: *HR* OxyCODONE Immed Rel 5 MG TABLET PO PRN ×2 (18:17→20:30)
[2017-11-07] MEDS ORDERED: *HR* HYDROcodone/Acet 10/325 mg TABLET PO PRN (20:30)
[2017-11-07] MEDS ORDERED: Acetaminophen 325 MG TABLET PO PRN (20:32)
[2017-11-07] MEDS ORDERED: Naloxone 0.4 MG/ML INJ IVP PRN (20:32)
[2017-11-07] MEDS: *HR* HYDROcodone/Acet 10/325 mg TABLET PO PRN (21:28)
[2017-11-07] MEDS: 0.9 % Sodium Chloride 1,000 ML IVC SCH (21:33)
[2017-11-08] MEDS: *HR* HYDROcodone/Acet 5/325 mg TABLET PO PRN ×2 (03:07→09:25)
[2017-11-08] MEDS: 0.9 % Sodium Chloride 1,000 ML IVC SCH (05:13)
[2017-11-08 06:45] LABS: Bilirubin,Urine Negative (Negative); Blood,Urine Negative (Negative); Clarity,Urine Clear (Clear); Color,Urine Yellow (Yellow); Glucose,Urine (UA) Normal (Normal); Ketones,Urine Negative (Negative); Leukocyte Esterase,Urine Negative (Negative); Nitrite,Urine Negative (Negative); PH,Urine 6.5 pH Units (5.0-8.0); Protein,Urine Negative (Neg-Trace); Specific Gravity,Urine 1.013 (1.010-1.025); Urobilinogen,Urine Normal (Normal)
[2017-11-08 07:52] LABS: Hematocrit 40.6 % (37.5-50.1); Hemoglobin 13.6 g/dL (12.9-16.9); Mean Corpuscular HGB Conc 33.5 g/dL (31.6-35.5); Mean Corpuscular Hemoglobin 31.1 pg (28.0-33.3); Mean Corpuscular Volume 92.9 fL (83.0-100.0); Mean Platelet Volume 9.2 fL (9.4-12.4); Platelet Count 311 K/mcL (140-400); Red Blood Count 4.37 M/mcL (4.19-5.50); Red Cell Distribution Width 12.6 % (11.5-14.5)
[2017-11-08 07:59] LABS: Prothrombin Time 11.3 Seconds (9.4-12.1)
[2017-11-08 08:02] LABS: Activated Partial Thrombo Time 28.1 Seconds (26.0-36.0)
--- NOTE | 2017-11-08 08:17 | Internal Med Progress Note ---
Date of Encounter: 11/08/17 Time of Encounter: 08:16 - Assessment and plan (1) Status post laminectomy Current Visit: Yes Status: Acute Assessment and plan: Surgery was consulted for further evaluation and management of bleeding, awaiting ortho recs. (2) Pain management Current Visit: Yes Status: Acute Assessment and plan: We will start pain management protocol , pain medication will be scheduled when necessary according to severity of the reported pain (3) DVT prophylaxis Current Visit: Yes Status: Acute Assessment and plan: SCDs - Time Spent With Patient Total time spent is greater than 50% in coordination of care (as documented) at patient's floor/unit and/or counseling patient: - Subjective Interval history: Pain is much better controlled. No further bleeding - Constitutional Vitals: Temp Pulse Resp BP Pulse Ox 97.4 F L 69 15 179/105 97 11/08/17 06:46 11/08/17 06:46 11/08/17 06:46 11/08/17 06:46 11/08/17 06:46 General appearance: Present: A&O X 3 - Head Head exam: Present: atraumatic, normocephalic - Respiratory Respiratory exam: Present: CTAB. Absent: accessory muscle use, rales, rhonchi, wheezes - Cardiovascular Cardiovascular exam: Present: RRR, +S1, +S2. Absent: diastolic murmur, gallop, rubs, systolic murmur - GI/Abdominal GI/Abdominal exam: Present: normal bowel sounds, soft, no peritoneal signs. Absent: distended, tenderness - Extremities Exam Extremities exam: Present: warm, radial pulses palpable and symmetrical. Absent : calf tenderness, cyanotic, pedal edema Internal Medicine: Result - Labs CBC & Chem 7: 11/08/17 07:13 11/08/17 07:13 Labs: Short CBC 11/08/17 Range/Units 07:13 WBC 6.0 (4.3-11.1) K/mcL Hgb 13.6 (12.9-16.9) g/dL Hct 40.6 (37.5-50.1) % Plt Count 311 (140-400) K/mcL Urine 11/08/17 Range/Units 06:20 Urine Color Yellow (Yellow) Urine Clarity Clear (Clear) Urine pH 6.5 (5.0-8.0) pH Units Ur Specific Ol[place] 1.013 (1.010-1.025) Urine Protein Negative (Neg-Trace) mg/dL Urine Glucose (UA) Normal (Normal) mg/dL - ABG Interpretation ABG results: PT/INR, D-dimer PT 11.3 Seconds (9.4-12.1) 11/08/17 07:13 - VTE Documentation of Mechanical Device: Graduated compression elastic hosiery Consult Discharge Plan - Plan Referrals: Stacy Fierro, CASANDRA [Physician Phlebotomy Lab Assistant] - 11/15/17 2:30 pm Gisel Voss CNP [Primary Care Provider] - David Cisneros [Family Provider] -
[2017-11-08 08:22] LABS: Blood Urea Nitrogen 9 mg/dL (6-20); Carbon Dioxide 24 mEq/L (23-29); Glucose 98 mg/dL (70-105)
[2017-11-08 08:47] LABS: Alanine Aminotransferase 13 Units/L (7-52); Albumin 3.6 g/dL (3.5-5.7); Albumin/Globulin Ratio 1.3 (1.1-2.2); Alkaline Phosphatase 55 Units/L (34-104); Aspartate Amino Transferase 15 Units/L (13-39); BUN/Creatinine Ratio 15 (6-26); Bilirubin,Total 0.6 mg/dL (0.3-1.0); Calcium 8.8 mg/dL (8.6-10.3); Chloride 104 mEq/L (98-107); Chol/HDL Ratio 4.5 (0-4.9); Cholesterol 152 mg/dL (< 200); Globulin 2.7 g/dL (2.4-3.5); HDL Cholesterol 34 mg/dL (40-59); LDL Cholesterol,Calculated 89 mg/dL (0-99); Magnesium 2.2 mg/dL (1.6-2.6); Osmolality,Calculated 277 (280-300); Phosphorous 3.9 mg/dL (2.7-4.5); Potassium 4.2 mEq/L (3.5-5.1); Sodium 134 mEq/L (136-145); Total Protein 6.3 g/dL (6.4-8.9); Triglycerides 147 mg/dL (< 150); eGFR For African Americans > 60 (> 60); eGFR For Non-African Americans > 60 (> 60)
[2017-11-08] MEDS ORDERED: MELOXICAM 15 MG PO SCH (09:00)
--- NOTE | 2017-11-08 13:22 | Orthopedic Consult Note ---
Date of Encounter: 11/08/17 Time of Encounter: 08:50 Assessment and Plan (1) Status post laminectomy Current Visit: Yes Status: Acute History of Present Illness Chief complaint: wound drainage HPI: Mr. Neri is a 52 year old male POD# 8 s/p Laminectomy L2-L5 performed on 06/[address] Miller for lumbar stenosis, lumbar radiculopathy, bilateral lower extremity weakness. He did very well postoperatively however was recommended for skilled care following discharge from hospital secondary to his continued, though improved bilateral leg weakness. He requested placement to [facility] which was done and he was discharged to facility on 11/04/17. He presents back to [facility] per patient because of wound drainage and for replacement to alternate facility as he states that he did not like [facility] and felt it was "dirty and chaotic so my girlfriend and mom got me out of there". He is sitting on bedside upon entering room. He has significantly improved motion, strength, and coordination of the bilateral lower extremities. Continues to note altered sensation to the b/l lower extremities. Vascularly intact. Inspection of wound reveals appx dime sized amount of serous drainage to proximal and distal aspects of incision on bandage. Removal of bandage demonstrates of note, the Prineo mesh has been removed. Stitches at proximal and distal aspects of incision are intact. No active drainage, erythema, or induration noted to the incision. No tenderness or fluctuance to palpation of incision area. Assessment: Status post laminectomy Plan: Discussed with Dr. Miller. Cleanse incision twice daily with soap and water. Change dressing (layered 4x4 gauze, Medipore tape) twice daily. Pain control per hospitalist team. PT/OT Continue with rehabilitation per therapy and primary team recommendations. Keep outpatient follow up as scheduled. Past Med Surg Social Fam HX - Past Medical History Medical history: no medical history Additional medical history: back pain Psychiatric history: no psych history - Past Surgical History Surgical History: orthopedic, other (Laminectomy) Additional surgical history: Back Pain - Social History Smoking Status: Current every day smoker Smokeless Tobacco Status: No Alcohol use: occasionally Drug use: none - Family History Father Living Status: Age at : 63 Cause of : heart attack Hx Family Cardiac Disorders: Yes Hx Family Respiratory Disorders: No Hx Family Cancer: No Hx Family GI Disorders: No Hx Family Genitourinary Disorders: No Hx Family Endocrine Disorder: No Hx Family Musculoskeletal Disorders: No Hx Family Neuromuscular Disorders: No Hx Family Neurologic Disorders: No Hx Family Autoimmune Disorders: No Hx Family Reproductive Disorders: No Hx Family Psychosocial Disorders: No Hx Family Medical Disorders: Yes Medications and Allergies HYDROcodone/Acet 10/325 mg [[place] 10-325 mg] 0.5 - 1 mg PO Q4-6H PRN 10/31/17 [ History] OxyCODONE Immed Rel [Roxicodone 5 MG] 5 mg PO Q6HR PRN 7 Days #28 tablet [Rx] Meloxicam 15 mg PO DAILY 11/07/17 [History] 3 Allergy/AdvReac Type Severity Reaction Status Date / Time No Known Allergies Allergy Verified 11/07/17 12:57 All Systems Reviewed: The remainder of the systems were reviewed and are negative Physical Exam - Constitutional Vitals: Temp Pulse Resp BP Pulse Ox 97.9 F 66 15 159/104 95 11/08/17 10:12 11/08/17 10:12 11/08/17 10:12 11/08/17 10:12 11/08/17 10:12 Results - Labs Result Diagrams: 11/08/17 07:13 11/08/17 07:13 Labs: Abnormal lab results MPV 9.2 fL (9.4-12.4) L 11/08/17 07:13 Sodium 134 mEq/L (136-145) L 11/08/17 07:13 Creatinine 0.60 mg/dL (0.70-1.30) L 11/08/17 07:13 Calculated Osmolality 277 (280-300) L 11/08/17 07:13 Serum Total Protein 6.3 g/dL (6.4-8.9) L 11/08/17 07:13 HDL Cholesterol 34 mg/dL (40-59) L 11/08/17 07:13 H & H 11/08/17 Range/Units 07:13 Hgb 13.6 (12.9-16.9) g/dL Hct 40.6 (37.5-50.1) % All other labs normal. Consult Discharge Plan - Plan Referrals: Gisel Voss CNP [Primary Care Provider] - David Cisneros [Family Provider] - Stacy Fierro, PAC [Physician Hot Billet Shear Operator] - 11/15/17 2:30 pm
[2017-11-08] MEDS: *HR* HYDROcodone/Acet 10/325 mg TABLET PO PRN ×2 (14:46→22:47)
[2017-11-09] MEDS: *HR* HYDROcodone/Acet 5/325 mg TABLET PO PRN (05:17)
[2017-11-09] MEDS: *HR* HYDROcodone/Acet 10/325 mg TABLET PO PRN ×2 (09:49→17:14)
--- NOTE | 2017-11-09 16:42 | Internal Med Progress Note ---
Date of Encounter: 11/09/17 Time of Encounter: 15:20 - Assessment and plan (1) Status post laminectomy Current Visit: Yes Status: Acute Assessment and plan: Recent laminectomy L2-5, POD #9 Presented back with wound drainage and replacement to alternate facility ortho evaluated the patient - no signs of infection, continue dressing per their order PT/OT pain mx with Kirby anticipate d/c tomorrow (2) Pain management Current Visit: Yes Status: Acute Assessment and plan: as above (3) DVT prophylaxis Current Visit: Yes Status: Acute Assessment and plan: scd - Time Spent With Patient Total time spent is greater than 50% in coordination of care (as documented) at patient's floor/unit and/or counseling patient: - Subjective Interval history: pain is manageable, no LE weakness/numbness. Good appetite. - Constitutional Vitals: Temp Pulse Resp BP Pulse Ox 98.1 F 73 16 157/88 99 11/09/17 14:39 11/09/17 14:39 11/09/17 14:39 11/09/17 14:39 11/09/17 14:39 General appearance: Present: A&O X 3 Exam: General: Alert and oriented Cardiovascular:Normal S1 & S2, no murmurs or gallops. No JVD. Pulse regular. Lungs:Normal breath sounds, no wheezes or crackles. Abdomen:Soft, non-tender, no rigidity. MSK: back dressing dry and clean Internal Medicine: Result - Labs CBC & Chem 7: 11/08/17 07:13 11/08/17 07:13 - ABG Interpretation ABG results: PT/INR, D-dimer PT 11.3 Seconds (9.4-12.1) 11/08/17 07:13 - VTE Documentation of Mechanical Device: Graduated compression elastic hosiery Consult Discharge Plan - Plan Referrals: Stacy Fierro PAC [Physician [employer] Manager] - 11/15/17 2:30 pm Gisel Voss CNP [Primary Care Provider] - David Cisneros [Family Provider] -
[2017-11-10] MEDS: *HR* HYDROcodone/Acet 10/325 mg TABLET PO PRN ×2 (01:47→09:32)
[2017-11-10 07:40] VITALS: BP 131/89
--- NOTE | 2017-11-10 09:01 | Discharge Summary ---
Date of Encounter: 11/10/17 Time of Encounter: 08:55 - Discharge Diagnosis (1) Status post laminectomy Priority: Primary Status: Acute (2) Pain management Priority: Secondary Status: Acute (3) DVT prophylaxis Priority: Secondary Status: Acute Hospital course: Mr. Neri is a 52 year old male with recent L2-5 laminectomy presented to the ED with wound drainage and dissatisfaction with the facility that he was discharged to. Labs unremarkable, orthopedics evaluated the patient and did not find any evidence of infection at the op site. He is going to be transferred to another [facility] for short term therapy and keep the old appointment with orthopedics for follow up. Discharge discussed with: patient - Time Spent with Patient Total time spent providing and/or coordinating discharge services: Greater than 30 minutes - Discharge Medications Prescriptions: HYDROcodone/Acet 5/325 mg [[place] 5-325 mg] 1 tab PO Q6HR PRN 4 Days #12 tablet PRN Reason: Moderate Pain HYDROcodone/Acet 10/325 mg [Hope 10-325 mg] 1 tab PO Q4-6H PRN 4 Days #12 tablet PRN Reason: Severe Pain Home Medications: Meloxicam 15 mg PO DAILY 11/07/17 [History] Acetaminophen [Tylenol] 650 mg PO Q6HR PRN tablet 11/10/17 [Rx] HYDROcodone/Acet 10/325 mg [Hope 10-325 mg] 1 tab PO Q4-6H PRN 4 Days #12 tablet 11/10/17 [Rx] HYDROcodone/Acet 5/325 mg [Hope 5-325 mg] 1 tab PO Q6HR PRN 4 Days #12 tablet 11/10/17 [Rx] Allergies/Adverse Reactions: 3 Allergy/AdvReac Type Severity Reaction Status Date / Time No Known Allergies Allergy Verified 11/07/17 12:57 Date of admission: 11/07/17 15:51 Primary care physician: Gisel Voss CNP - Constitutional Vitals: Temp Pulse Resp BP Pulse Ox 98.3 F 68 16 131/89 93 11/10/17 07:39 11/10/17 07:39 11/10/17 07:39 11/10/17 07:39 11/10/17 07:39 General appearance: Present: A&O X 3 Exam: General: Alert and oriented Cardiovascular:Normal S1 & S2, no murmurs or gallops. No JVD. Pulse regular. Lungs:Normal breath sounds, no wheezes or crackles. Abdomen:Soft, non-tender, no rigidity. MSK: back dressing dry and clean - Patient Status Disposition: Transfer SNF Condition: Good Overall status at discharge: patient is progressing back to baseline - Discharge Instructions Follow Up With: Stacy Fierro PAC [Physician [employer]er] - 11/15/17 2:30 pm Gisel Voss CNP [Primary Care Provider] - - Diet and Activity Activity: as per physical therapy Diet: regular diet - VTE Documentation of Mechanical Device: Graduated compression elastic hosiery
--- NOTE | 2017-11-10 09:04 | Physician Discharge Referral ---
ExtendedCare Referral Info Transfer To: [facility] Institutional Level of Care: Skilled - Diagnosis (1) Status post laminectomy Priority: Primary Status: Acute (2) Pain management Priority: Secondary Status: Acute (3) DVT prophylaxis Priority: Secondary Status: Acute Prognosis: Good Aware of Diagnosis: Patient Aware of Prognosis: Patient - Transfer Medications Prescriptions: HYDROcodone/Acet 5/325 mg [[place] 5-325 mg] 1 tab PO Q6HR PRN 4 Days #12 tablet PRN Reason: Moderate Pain HYDROcodone/Acet 10/325 mg [[place] 10-325 mg] 1 tab PO Q4-6H PRN 4 Days #12 tablet PRN Reason: Severe Pain Home Medications: Meloxicam 15 mg PO DAILY 11/07/17 [History] Acetaminophen [Tylenol] 650 mg PO Q6HR PRN tablet 11/10/17 [Rx] HYDROcodone/Acet 10/325 mg [[place] 10-325 mg] 1 tab PO Q4-6H PRN 4 Days #12 tablet 11/10/17 [Rx] HYDROcodone/Acet 5/325 mg [[place] 5-325 mg] 1 tab PO Q6HR PRN 4 Days #12 tablet 11/10/17 [Rx] Allergies/Adverse Reactions: 3 Allergy/AdvReac Type Severity Reaction Status Date / Time No Known Allergies Allergy Verified 11/07/17 12:57 - Respiratory Orders Smoking Cessation: Smoking cessation has been advised. For more information, call the [place] Tobacco Quit Line at 4-865-JPPE-NOW. - Mobility Orders Ambulate - Rehabiliation Orders Rehab Potential: Good Rehab Orders: Evaluation for Physical Therapy - Diet Orders Regular CERTIFICATION: I certify that the transfer of the above named patient to an Extended Care Facility is necessary for the continuing treatment of the diagnosis listed. The above information is true and accurate reflection of patient's current condition. Confidential - Redisclosure prohibited without a patient's written consent.
== END 2017-11-10 11:15 ==
LOC: 3ANU 12:52 → EMEROO 12:52 → SUATTDRO 15:51 → 3ANU 16:31
PROVIDERS: ADMIT Internal Medicine Nephrology; ATTEND Internal Medicine